=== PATIENT | male | born 1995 | race African-American/Black ===

== ENCOUNTER 2023-08-13 10:43 | Emergency (ER) | payer OTHER ==
[~2023-08-13] VITALS: Ht 175.3 cm; Wt 119.9 kg
[2023-08-13 12:56] LABS: RSV AMPLIFICATION NEGATIVE (NEGATIVE)
[2023-08-13 14:42] VITALS: BP 133/85; TEMP 97.7; O2SAT 99
== END 2023-08-13 15:35 | disposition home or self-care (01) ==
LOC: M ED 14:36
DX: B34.8 Other viral infections of unspecified site (principal); R19.7 Diarrhea, unspecified; Z20.822 Contact with and (suspected) exposure to COVID-19; Z88.8 Allergy status to other drugs, medicaments and biological substances

== ENCOUNTER 2024-01-14 14:13 | Emergency (ER) | payer OTHER ==
[~2024-01-14] VITALS: Ht 177.8 cm; Wt 119.9 kg
[2024-01-14 14:15] VITALS: BP 159/97; TEMP 97.9; O2SAT 98
[2024-01-14] MEDS: ONDANSETRON 4MG 2ML VIAL IV ONE (15:38)
[2024-01-14] MEDS: NS 1,000 ML IV ONE (15:39)
[2024-01-14 15:55] LABS: BASO % 0.6 % (0.0-1.0); EOS # 0.1 10^3/uL (0.0-0.5); EOS % 2.2 % (0.0-3.0); HEMATOCRIT 50.1 % (42.0-52.0); HEMOGLOBIN 16.3 g/dl (13.5-17.5); LYMPH # 1.2 10^3/uL (1.5-5.0); LYMPH % 21.5 % (24.0-44.0); MEAN CORPUSCULAR HEMOGLOBIN 31.7 pg (27.0-33.0); MEAN CORPUSCULAR HGB CONC 32.5 g/dl (32.0-36.5); MEAN CORPUSCULAR VOLUME 97.3 fl (80.0-96.0); MONO # 0.9 10^3/uL (0.0-0.8); NEUTROPHILS # 3.2 10^3/uL (1.5-8.5); NEUTROPHILS % 59.3 % (36.0-66.0); PLATELET COUNT, AUTOMATED 308 10^3/uL (150-450); RED BLOOD COUNT 5.15 10^6/uL (4.30-6.10); WHITE BLOOD COUNT 5.4 10^3/uL (4.0-10.0)
[2024-01-14 16:22] LABS: LIPASE 37 U/L (12-53)
[2024-01-14 16:24] LABS: ALBUMIN 4.5 G/DL (3.2-5.2); ALKALINE PHOSPHATASE 74 U/L (46-116); ALT/SGPT 150 U/L (7.0-40); AST/SGOT 78 U/L (<34); BILIRUBIN,DIRECT 0.4 MG/DL (<0.4); BILIRUBIN,TOTAL 1.6 MG/DL (0.3-1.2); BLOOD UREA NITROGEN 15 MG/DL (9-23); CALCIUM LEVEL 9.8 MG/DL (8.5-10.1); CARBON DIOXIDE LEVEL 27 MMOL/L (20-31); CHLORIDE LEVEL 104 MMOL/L (98-107); GLOMERULAR FILTRATION RATE > 60.0 (>60); GLUCOSE, FASTING 93 MG/DL (60-100); SODIUM LEVEL 138 MMOL/L (136-145); TOTAL PROTEIN 7.9 G/DL (5.7-8.2)
[2024-01-14] MEDS ORDERED: ONDA-282 PO (16:55)
== END 2024-01-14 18:05 | disposition home or self-care (01) ==
LOC: M ED 14:13
DX: R11.2 Nausea with vomiting, unspecified (principal); F10.10 Alcohol abuse, uncomplicated; Z88.8 Allergy status to other drugs, medicaments and biological substances; Z79.83 Long term (current) use of bisphosphonates
CPT/HCPCS: 80048; 80076; 83690; 85025; 96361; 96374; 99282; J2405

== ENCOUNTER 2024-06-02 07:52 | Emergency (ER) | payer OTHER ==
[~2024-06-02] VITALS: Ht 175.3 cm; Wt 127.8 kg
[~2024-06-02 07:52] MED LIST: ONDA-282 PO
[2024-06-02] MEDS: ACETAMINOPHEN *IV* 1,000 MG in IV 1 EA IV ONE (08:33)
[2024-06-02] MEDS: METOCLOPRAMIDE INJ 10MG/2ML VIAL IV ONE (08:58)
[2024-06-02 10:41] VITALS: BP 130/88; TEMP 97.6; O2SAT 96
== END 2024-06-02 10:42 | disposition home or self-care (01) ==
LOC: M ED 07:52
DX: G43.909 Migraine, unspecified, not intractable, without status migrainosus (principal); D55.0 Anemia due to glucose-6-phosphate dehydrogenase [G6PD] deficiency
CPT/HCPCS: 96365; 96375; 99284; J0131; J2765